=== PATIENT | female | born 1970 | race Caucasian/White ===

== ENCOUNTER → 2018-04-03 | Outpatient (CLI) | payer OTHER ==
--- NOTE | 2018-04-04 14:27 | MM ---
Reason for exam: screening (asymptomatic). Last mammogram was performed 2 years and 8 months ago. History: Family history of breast cancer in aunt at age 40. Reductions of both breasts. Took hormonal contraceptives for 11 years beginning at age 16. Physical Findings: A clinical breast exam by your physician is recommended on an annual basis and results should be correlated with mammographic findings. MG 3D Screening Mammo W/Cad Bilateral CC and MLO view(s) were taken. Prior study comparison: August 12, 2015, bilateral MG 3d diag mammo w/cad [facility]. December 29, 2014, right breast MG diagnostic mammo RT w CAD. The breast tissue is heterogeneously dense. This may lower the sensitivity of mammography. No suspicious abnormality. No significant changes when compared with prior studies. ASSESSMENT: Negative, BI-RAD 1 RECOMMENDATION: Routine screening mammogram of both breasts in 1 year.
== END | disposition home or self-care (01) ==
LOC: RADMAMWWP 07:14
PROVIDERS: ATTEND Family Medicine
DX: Z12.31 Encounter for screening mammogram for malignant neoplasm of breast (principal)
CPT/HCPCS: 77063; 77067

== ENCOUNTER → 2018-04-19 | Outpatient (CLI) | payer OTHER ==
--- NOTE | 2018-04-19 12:20 | ECHOS ---
STRESS ECHOCARDIOGRAM DATE OF SERVICE: 04/19/2018 INDICATIONS: Chest pain. MEDICATIONS: BASELINE HEART RATE: 72 BASELINE BLOOD PRESSURE: 120/74 MAXIMUM HEART RATE: 158 MAXIMUM BLOOD PRESSURE: 179/91 85% MPHR: 145 100% MPHR: 171 METS: 11.1 MAXIMUM STAGE REACHED: III TOTAL EXERCISE TIME: 9-1/2 minutes CLINICAL INFORMATION: Baseline EKG revealed a normal sinus rhythm with poor R-wave progression over precordial leads. The patient walked for 9-1/2 minutes on standard Manuel protocol, achieved a maximal heart rate of 158 beats per minute which is more than 85% of predicted maximal. She developed fatigue and shortness of breath but did not have any angina or arrhythmia. EKG did not reveal any ST-segment changes to indicate ischemia. This is a negative stress test with good exercise capacity. Baseline echo images revealed normal wall motion and wall thickening of all segments. At peak exercise, there was good augmentation of left ventricular wall motion and wall thickening of all segments suggesting that there is no evidence of stress-induced ischemia on this study. FINAL IMPRESSION: 1. Good exercise capacity with a negative stress test by EKG criteria. 2. Normal stress echocardiogram without evidence of ischemia. MMODL / IJN: [id number] /
== END | disposition home or self-care (01) ==
LOC: RADNMMAIN 09:14
PROVIDERS: ATTEND Family Medicine
DX: R07.89 Other chest pain (principal)
CPT/HCPCS: 93351

== ENCOUNTER → 2019-03-03 | Outpatient (CLI) | payer OTHER | END | disposition home or self-care (01) | LOC: BARWHC3 13:05 | PROVIDERS: ATTEND Surgery | DX: Z53.9 Procedure and treatment not carried out, unspecified reason (principal) ==

== ENCOUNTER → 2020-05-10 | Outpatient (CLI) | payer OTHER ==
--- NOTE | 2020-05-10 13:38 | MR ---
EXAMINATION TYPE: MR brain wo/w con DATE OF EXAM: 05/10/2020 1:32 PM COMPARISON: NONE HISTORY: Headaches, hx brain tumor resection 1988 FINDINGS: The ventricles, basal cisterns and sulci overlying the cerebral convexities are mildly enlarged. There is evidence of mild periventricular white matter ischemic demyelination. Remote deep white matter insults are also noted. No acute edema is seen on diffusion weighted imaging. There is no evidence for midline shift or mass effect. Acute intracranial hemorrhage or extra-axial collection is not evident. The paranasal sinuses and mastoid air cells are well-aerated. IMPRESSION: Age-related atrophic and chronic small vessel ischemic change. No acute intracranial process at this time.
--- NOTE | 2020-05-10 13:58 | MR ---
EXAMINATION TYPE: MR angio head wo con DATE OF EXAM: 05/10/2020 COMPARISON: None HISTORY: Headaches, hx brain tumor resection 1988 CONTRAST: None TECHNIQUE: Multiplanar multiecho imaging on a 3.0 Jesusita magnet is performed through the [facility] of [facility]. 3-D [id number]-sk-[id number] imaging is performed. Source images are reviewed on the computer in the axi al plane. Reconstructed images rotating on the computer are reviewed. FINDINGS: The internal carotid arteries bifurcate normally into A1 and M1 segments. The A2 segments are normal. Middle cerebral artery branches are normal. Anterior communicating artery is patent. The right posterior communicating artery is patent. The left posterior communicating artery is patent. There is a 0.3 cm aneurysm extending from the inferior lateral left carotid siphon. Series 701 image 54. This is poorly visualized on Three-D reconstructed images. Vertebrobasilar arteries within the [id number] are normal. Posterior cerebral vasculature is norm al. No obstructions are identified. No significant flow-limiting stenosis is evident. IMPRESSIONS: 1. 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
== END ==
LOC: RADMRIMAIN 12:33
PROVIDERS: ATTEND Nurse Practitioner Adult Health
DX: I67.82 Cerebral ischemia (principal); G31.1 Senile degeneration of brain, not elsewhere classified; I72.0 Aneurysm of carotid artery; Z86.011 Personal history of benign neoplasm of the brain
CPT/HCPCS: 70544; 70553; A9585

== ENCOUNTER → 2020-05-10 | Outpatient (CLI) | payer OTHER ==
--- NOTE | 2020-05-10 08:40 | US ---
EXAMINATION TYPE: US duplex aorta DATE OF EXAM: 05/10/2020 COMPARISON: NONE CLINICAL HISTORY: Z82.49 Family hx of AAA. EXAM MEASUREMENTS: Abdominal Aorta: Proximal: 2.4 x 2.4 cm Mid: 2.2 x 2.1 cm Distal: 1.6 x 1.4 cm Bifurcation: 1.2 cm 1.1 cm No evidence of AAA IMPRESSION: 1. Dominant aorta ultrasound negative for aneurysm.
== END | disposition home or self-care (01) ==
LOC: RADUSWWP 07:53
PROVIDERS: ATTEND Family Medicine
DX: Z13.6 Encounter for screening for cardiovascular disorders (principal); Z82.49 Family history of ischemic heart disease and other diseases of the circulatory system
CPT/HCPCS: 93979

== ENCOUNTER 2020-05-22 13:06 | Observation (INO) | payer OTHER ==
[2020-05-22] MEDS ORDERED: DIPH,PERTUS(ACELL)TETVAC-LF 0.5 ML VIAL IM ONE (13:16)
[2020-05-22] MEDS ORDERED: HYDROmorphone 0.5 MG/0.5 ML SYRINGE IVP STA (13:16)
[2020-05-22 13:47] LABS: Basophils % (A) 0 %; Eosinophils # (A) 0.1 k/uL (0-0.7); Eosinophils % (A) 1 %; HCT 42.4 % (34.0-46.0); HGB 13.6 gm/dL (11.4-16.0); Lymphocytes # (A) 2.1 k/uL (1.0-4.8); Lymphocytes % (A) 16 %; MCH 29.8 pg (25.0-35.0); MCV 93.2 fL (80.0-100.0); Mean Platelet Volume 8.1; Monocytes # (A) 0.4 k/uL (0-1.0); Monocytes % (A) 3 %; Neutrophils # (A) 10.4 k/uL (1.3-7.7); Neutrophils % (A) 79 %; Platelet Count 237 k/uL (150-450); RBC 4.55 m/uL (3.80-5.40); RDW 13.3 % (11.5-15.5); WBC 13.1 k/uL (3.8-10.6)
[2020-05-22] MEDS ORDERED: HYDROmorphone 1 MG/ML 1 ML SYRINGE IVP STA (13:49)
[2020-05-22 13:52] LABS: ALT 22 U/L (4-34); AST 27 U/L (14-36); African American GFR (CKD) >90 (>60 ml/min/1.73 sqM); Albumin 4.1 g/dL (3.5-5.0); Alkaline Phosphatase 65 U/L (38-126); Anion Gap 8 mmol/L; Blood Urea Nitrogen 17 mg/dL (7-17); Calcium 9.2 mg/dL (8.4-10.2); Carbon Dioxide 25 mmol/L (22-30); Chloride 104 mmol/L (98-107); Glucose 130 mg/dL (74-99); Non-African American GFR(CKD) >90 (>60 ml/min/1.73 sqM); Potassium 3.9 mmol/L (3.5-5.1); Sodium 137 mmol/L (137-145); Total Bilirubin 0.6 mg/dL (0.2-1.3); Total Protein 6.7 g/dL (6.3-8.2)
--- NOTE | 2020-05-22 13:52 | XR ---
EXAMINATION TYPE: XR knee complete RT DATE OF EXAM: 05/22/2020 COMPARISON: NONE HISTORY: Pain TECHNIQUE: Three views are submitted. FINDINGS: Joint spaces are preserved. Osseous structures are intact. No acute fracture seen. Soft tissue lizandro ma and laceration with extensive amount radiopaque foreign body suspected. IMPRESSION: 1. No acute fracture or dislocation. 2. Soft tissue edema and emphysema with suspected laceration and radiopaque foreign body
--- NOTE | 2020-05-22 13:53 | XR ---
EXAMINATION TYPE: XR Hip Complete RT DATE OF EXAM: 05/22/2020 COMPARISON: NONE HISTORY: Pain TECHNIQUE: 2 views submitted FINDINGS: There is no evidence of erosive change or acute fracture. Concentric narrowing of the joint space. . IMPRESSION: 1. No evidence of acute fracture or dislocation.
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
[2020-05-22] MEDS ORDERED: ONDANSETRON 4 MG/2 ML VIAL IVP PRN ×2 (14:11→15:08)
[2020-05-22] MEDS ORDERED: NALOXONE 0.4 MG/ML 1 ML VIAL IV PRN (14:11)
[2020-05-22] MEDS ORDERED: HYDROmorphone 0.5 MG/0.5 ML SYRINGE IVP PRN ×3 (14:11→15:08)
[2020-05-22] MEDS ORDERED: SODIUM CHLORIDE 0.9% 1,000 ML IV SCH (14:15)
[2020-05-22] MEDS ORDERED: LORazepam 2 MG/ML INJ IV STA (14:27)
[2020-05-22] MEDS ORDERED: HYDROcodone/APAP 5-325MG 1 EACH TAB PO PRN ×2 (15:08)
[2020-05-22] MEDS ORDERED: SENNOSIDES-DOCUSATE SODIUM 1 EACH TAB PO PRN (15:08)
[2020-05-22] MEDS ORDERED: hydrOXYzine pamoate 25 MG CAP PO PRN (15:08)
[2020-05-22] MEDS ORDERED: HYDROmorphone 1 MG/ML 1 ML SYRINGE IVP PRN (15:08)
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
[2020-05-22 15:36] VITALS: RESP 18
[2020-05-22] MEDS ORDERED: SODIUM CHLORIDE 0.9% 100 ML BAG ONE (16:11)
[2020-05-22] MEDS ORDERED: LABETALOL 5 MG/ML VIAL MDV ONE (16:11)
[2020-05-22] MEDS ORDERED: MIDAZOLAM 2 MG/2 ML VIAL ONE (16:11)
[2020-05-22] MEDS ORDERED: KETOROLAC 30 MG/ML 1 ML VIAL ONE (16:11)
[2020-05-22] MEDS ORDERED: PROPOFOL 10 MG/ML 20 ML VIAL IV ONE (16:11)
[2020-05-22] MEDS ORDERED: LIDOCAINE 1% INJ 10MG/ML (20 ML MDV) ONE (16:11)
[2020-05-22] MEDS ORDERED: SUCCINYLCHOLINE CHLORIDE 100 MG/5 ML SYR IV ONE (16:11)
[2020-05-22] MEDS ORDERED: ceFAZolin 1,000 MG VIAL ONE (16:11)
[2020-05-22] MEDS ORDERED: IV FLUID CONTINUATION 1,000 ML IV ONE (16:11)
[2020-05-22] MEDS ORDERED: DEXAMETHASONE SOD PHOSPHATE 4 MG/ML 1 ML VIAL ONE (16:11)
[2020-05-22] MEDS ORDERED: ONDANSETRON 4 MG/2 ML VIAL ONE (16:11)
[2020-05-22] MEDS ORDERED: fentaNYL (PF) 50 MCG/ML 2 ML AMP ONE (16:11)
[2020-05-22] MEDS ORDERED: LACTATED RINGERS 1,000 ML IV ONE (16:31)
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
[2020-05-22] MEDS ORDERED: BUPIVACAINE (PF) 0.25% 30 ML VIAL SQ ONE ×2 (16:37)
[2020-05-22] MEDS ORDERED: ceFAZolin 3,000 MG in SODIUM CHLORIDE 0.9% IRRIGATIO 3,000 ML IRRIGATION ONE (16:38)
--- NOTE | 2020-05-22 16:53 | P.DS ---
Providers Date of admission: 05/22/20 13:50 Expected date of discharge: 05/22/20 Attending physician: Kevin Savage Primary care physician: Alexander Ballesteros - Discharge Diagnosis(es) (1) Knee laceration Current Visit: Yes Status: Acute (2) Laceration with foreign body Current Visit: Yes Status: Acute (3) Right knee injury Current Visit: Yes Status: Acute Hospital Course: This is a 49-year-old female who is admitted for right knee laceration. Patient underwent irrigation and debridement of the right knee on 05/22/2020 in the operating room by Dr Kevin Savage. The procedure was performed without complication or sequelae. Patient is doing well postoperatively. On day of discharge vital signs are stable. Patient is in no acute distress and is alert and oriented 3. Calf is soft and nontender to palpation. Dressing is clean, dry, and intact. Patient has full foot and ankle motion without pain or difficulty. Neurovascular status and circulatory status are intact. Patient is in good condition for discharge home. Patient Condition at Discharge: Stable Plan - Discharge Summary New Discharge Prescriptions: New HYDROcodone/APAP 5-325MG [Clemons 5-325] 1 - 2 tab PO Q6HR PRN #30 tab PRN Reason: Pain Sennosides [Senokot] 2 tab PO DAILY PRN #60 tablet PRN Reason: Constipation Cephalexin [Keflex] 500 mg PO Q6HR 10 Days #40 cap No Action predniSONE See Taper PO DIRECTED Rosuvastatin [Crestor] 20 mg PO DAILY Glucos Sul 2Kcl/MSM/Chond/C/Mn [Glucosamine Chondroitin Cap] 1 each PO DAILY Discharge Medication List Cephalexin [Keflex] 500 mg PO Q6HR 10 Days #40 cap 05/22/20 [Rx] Glucos Sul 2Kcl/MSM/Chond/C/Mn [Glucosamine Chondroitin Cap] 1 each PO DAILY 05/22/20 [History] HYDROcodone/APAP 5-325MG [Clemons 5-325] 1 - 2 tab PO Q6HR PRN #30 tab 05/22/20 [Rx] Rosuvastatin [Crestor] 20 mg PO DAILY 05/22/20 [History] Sennosides [Senokot] 2 tab PO DAILY PRN #60 tablet 05/22/20 [Rx] predniSONE See Taper PO DIRECTED 05/22/20 [History] Follow up Appointment(s)/Referral(s): Alexander Ballesteros MD [Primary Care Provider] - 1-2 days Kevin Savage DO [Doctor of Osteopathic Medicine] - 1 Week Activity/Diet/Wound Care/Special Instructions: Keep dressing clean, dry and intact. Leave surgical dressing in place for 24 hours. May loosen CAROLYN wrap if too tight. Elevate and ice for swelling. Maintain knee immobilizer for comfort. Weight bearing as tolerated. [place] to be removed in 10-14 days. May shower in 24-48 hours if no drainage from the incision. Do not soak incision. Please take medications as prescribed. Please follow-up with [facility] and call if any questions or concerns, . Discharge Disposition: HOME SELF-CARE
[2020-05-22 17:07] VITALS: TEMP 97.1
[2020-05-22] MEDS ORDERED: fentaNYL (PF) 50 MCG/ML 2 ML AMP IV ONE (17:08)
[2020-05-22 17:32] VITALS: BP 145/82; PULSE 59
[2020-05-22 18:16] LABS: Basophils % (A) 0 %; Eosinophils % (A) 0 %; HCT 40.3 % (34.0-46.0); HGB 12.6 gm/dL (11.4-16.0); Lymphocytes # (A) 0.7 k/uL (1.0-4.8); Lymphocytes % (A) 5 %; MCH 29.7 pg (25.0-35.0); MCHC 31.1 g/dL (31.0-37.0); MCV 95.4 fL (80.0-100.0); Monocytes # (A) 0.5 k/uL (0-1.0); Monocytes % (A) 4 %; Neutrophils # (A) 12.9 k/uL (1.3-7.7); Neutrophils % (A) 91 %; Platelet Count 196 k/uL (150-450); RBC 4.22 m/uL (3.80-5.40); RDW 13.4 % (11.5-15.5); WBC 14.2 k/uL (3.8-10.6)
== END 2020-05-22 19:01 | disposition home or self-care (01) ==
LOC: EC 13:06 → 1SOBS 13:50
PROVIDERS: ADMIT Orthopaedic Surgery; ATTEND Orthopaedic Surgery
DX: S81.021A Laceration with foreign body, right knee, initial encounter (principal); V18.4XXA Pedal cycle driver injured in noncollision transport accident in traffic accident, initial encounter; Y93.55 Activity, bike riding; Z79.899 Other long term (current) drug therapy; Z86.011 Personal history of benign neoplasm of the brain; I72.0 Aneurysm of carotid artery; Z98.890 Other specified postprocedural states; F41.9 Anxiety disorder, unspecified
CPT/HCPCS: 90471; 99285; 36415; 80053; 85025; 73502; 73562; 90715; 12035; G0378; J2250; J2060; J1100; J0690 ×2; J2405; J2001; J3010; J1885; J1170 ×2; J0330; J2704

== ENCOUNTER → 2020-09-08 | Outpatient (CLI) | payer OTHER ==
--- NOTE | 2020-09-13 08:30 | MM ---
Reason for exam: screening (asymptomatic). Last mammogram was performed 2 years and 5 months ago. History: Patient is postmenopausal. Family history of breast cancer in aunt at age 40. Reductions of both breasts. Took hormonal contraceptives for 11 years beginning at age 16. Physical Findings: A clinical breast exam by your physician is recommended on an annual basis and results should be correlated with mammographic findings. MG 3D Screening Mammo W/Cad Bilateral CC and MLO view(s) were taken. Prior study comparison: April 03, 2018, bilateral MG 3d screening mammo w/cad. August 12, 2015, bilateral MG 3d diag mammo w/cad [facility]. There are scattered fibroglandular densities. No significant changes when compared with prior studies. ASSESSMENT: Benign, BI-RAD 2 RECOMMENDATION: Routine screening mammogram of both breasts in 1 year.
== END | disposition home or self-care (01) ==
LOC: RADMAMWWP 15:03
PROVIDERS: ATTEND Family Medicine
DX: Z12.31 Encounter for screening mammogram for malignant neoplasm of breast (principal)
CPT/HCPCS: 77063; 77067

== ENCOUNTER → 2021-06-10 | Outpatient (CLI) | payer OTHER ==
--- NOTE | 2021-06-10 14:48 | MR ---
EXAMINATION TYPE: MR angio head wo/neck wo/w con DATE OF EXAM: 06/10/2021 COMPARISON: MR angiogram of the head 05/10/2020 HISTORY: Headaches, hx of past brain tumor TECHNIQUE: Time of flight images focusing on the [place] were performed without contrast.. 2-D and 3-D postprocessing imaging is performed. Multiplanar multisequence and postcontrast images ob tained through the neck, three-dimensional postprocessing was performed. FINDINGS: [place] MRA shows a stable appearance, the internal carotid artery aneurysm on the left measures approximately 2 to 3 mm by 4 mm. There is no other significant interval change. Neck MRI: The right common carotid, internal and external carotid arteries, vertebral arteries are pa tent. There is no stenosis by NASCET criteria. Left and right subclavian arteries, innominate artery are patent. * IMPRESSION: Similar measurement of the internal carotid artery aneurysm on the left. Unremarkable neck MRA.
== END | disposition home or self-care (01) ==
LOC: RADMRIMAIN 11:17
PROVIDERS: ATTEND Family Medicine
DX: I67.1 Cerebral aneurysm, nonruptured (principal); Z86.011 Personal history of benign neoplasm of the brain
CPT/HCPCS: 70544; 70549; A9585

== ENCOUNTER → 2021-08-31 | Outpatient (CLI) | payer OTHER ==
[~2021-08-31] MED LIST: BAMLANIVIMAB (EUA) 700 MG, ETESEVIMAB (EUA) 1,400 MG in SODIUM CHLORIDE 0.9% 50 ML IVPB NR; SODIUM CHLORIDE 0.9% 50 ML IVPB ONE; SODIUM CHLORIDE 0.9% 500 ML 500 ML in EMPTY BAG 1 BAG IV PRN
[2021-08-31 12:04] VITALS: RESP 16
[2021-08-31 12:23] VITALS: BP 128/85; PULSE 73; TEMP 98.5
== END ==
LOC: PROCWHC3 10:22
PROVIDERS: ATTEND Family Medicine
DX: U07.1 COVID-19 (principal); E66.9 Obesity, unspecified; Z68.30 Body mass index [BMI] 30.0-30.9, adult
CPT/HCPCS: 96360; J3490; M0245

== ENCOUNTER → 2021-09-20 | Outpatient (CLI) | payer OTHER ==
--- NOTE | 2021-09-21 14:43 | MM ---
Reason for exam: screening (asymptomatic). Last mammogram was performed 1 year ago. History: Patient is postmenopausal. Family history of breast cancer in aunt at age 40. Reductions of both breasts. Took hormonal contraceptives for 11 years beginning at age 16. Physical Findings: A clinical breast exam by your physician is recommended on an annual basis and results should be correlated with mammographic findings. MG 3D Screening Mammo W/Cad Bilateral CC and MLO view(s) were taken. Prior study comparison: September 08, 2020, bilateral MG 3d screening mammo w/cad. April 03, 2018, bilateral MG 3d screening mammo w/cad. There are scattered fibroglandular densities. No significant changes when compared with prior studies. ASSESSMENT: Benign, BI-RAD 2 RECOMMENDATION: Routine screening mammogram of both breasts in 1 year.
== END | disposition home or self-care (01) ==
LOC: RADMAMWWP 07:11
PROVIDERS: ATTEND Family Medicine
DX: Z12.31 Encounter for screening mammogram for malignant neoplasm of breast (principal); Z78.0 Asymptomatic menopausal state; Z80.3 Family history of malignant neoplasm of breast
CPT/HCPCS: 77063; 77067

== ENCOUNTER 2022-07-24 19:03 | Inpatient (IN) | payer OTHER ==
[2022-07-24 19:42] LABS: Basophils % (A) 1 %; Eosinophils # (A) 0.1 k/uL (0-0.7); Eosinophils % (A) 2 %; HCT 40.5 % (34.0-46.0); HGB 13.7 gm/dL (11.4-16.0); Lymphocytes # (A) 2.4 k/uL (1.0-4.8); Lymphocytes % (A) 32 %; MCH 30.6 pg (25.0-35.0); MCHC 33.8 g/dL (31.0-37.0); MCV 90.7 fL (80.0-100.0); Monocytes # (A) 0.4 k/uL (0-1.0); Monocytes % (A) 5 %; Neutrophils # (A) 4.4 k/uL (1.3-7.7); Neutrophils % (A) 59 %; Platelet Count 200 k/uL (150-450); RBC 4.47 m/uL (3.80-5.40); RDW 13.2 % (11.5-15.5); WBC 7.4 k/uL (3.8-10.6)
[2022-07-24 19:51] LABS: ALT 17 U/L (4-34); AST 22 U/L (14-36); African American GFR (CKD) >90 (>60 ml/min/1.73 sqM); Albumin 4.3 g/dL (3.5-5.0); Alkaline Phosphatase 59 U/L (38-126); Anion Gap 10 mmol/L; Blood Urea Nitrogen 6 mg/dL (7-17); Calcium 9.3 mg/dL (8.4-10.2); Carbon Dioxide 26 mmol/L (22-30); Chloride 99 mmol/L (98-107); Glucose 87 mg/dL (74-99); Magnesium 1.9 mg/dL (1.6-2.3); Non-African American GFR(CKD) >90 (>60 ml/min/1.73 sqM); Potassium 3.7 mmol/L (3.5-5.1); Sodium 135 mmol/L (137-145); Total Bilirubin 0.7 mg/dL (0.2-1.3); Total Protein 6.6 g/dL (6.3-8.2)
[2022-07-24 19:52] LABS: Partial Thromboplastin Time 25.2 sec (22.0-30.0); Prothrombin Time 10.8 sec (9.0-12.0)
--- NOTE | 2022-07-24 19:57 | XR ---
EXAMINATION TYPE: XR chest 2V DATE OF EXAM: 07/24/2022 COMPARISON: NONE HISTORY: Substernal chest pain TECHNIQUE: 2 views FINDINGS: Heart is normal. Lungs are clear of infiltrate. No heart failure. There are no hilar masses . The bony thorax is intact. IMPRESSION: Normal chest
[2022-07-24] MEDS ORDERED: SODIUM CHLORIDE 0.9% 1,000 ML IV STA (21:19)
[2022-07-24] MEDS: NITROGLYCERIN SL TABS 0.4 MG TAB SUBLINGUAL PRN ×3 (21:38→23:55)
[2022-07-24] MEDS ORDERED: ONDANSETRON 4 MG/2 ML VIAL IVP STA (21:44)
--- NOTE | 2022-07-24 21:53 | ED ---
General Adult HPI - General Chief complaint: Chest Pain Stated complaint: Chest pain Time Seen by Provider: 07/24/22 21:04 Source: patient, RN notes reviewed, old records reviewed Mode of arrival: ambulatory - History of Present Illness Initial comments: Patient is a 52-year-old female who presents emergency department today after being sent over from her primary care over concern for chest pain. Chest pain started approximately 5:30 PM this evening. Was substernal in nature. Squeezing sensation. Patient does have a meeting. No other associated symptoms. Believes it may be radiating to her back intermittently. Patient does have family members with significant cardiac history as well as aneurysm. 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 Patient otherwise denies shortness of breath. Denies abdominal pain, nausea, vomiting. Denies any diaphoretic episodes with this chest pain. Is still having it. Had a prolonged wait in the waiting room where workup was started. She was brought back when laboratory studies are returning. I evaluated the patient in approximately 9 PM. Symptoms are unchanged. She already received 324 mi lligrams of aspirin prior to arrival. - Related Data Home Medications Medication Instructions Recorded Confirmed Glucos Sul 2Kcl/MSM/Chond/C/Mn 1 each PO DAILY 05/22/20 05/22/20 [Glucosamine Chondroitin Cap] Rosuvastatin [Crestor] 20 mg PO DAILY 05/22/20 05/22/20 predniSONE See Taper PO DIRECTED 05/22/20 05/22/20 Previous Rx's Medication Instructions Recorded Cephalexin [Keflex] 500 mg PO Q6HR 10 Days #40 cap 05/22/20 HYDROcodone/APAP 5-325MG [[place] 1 - 2 tab PO Q6HR PRN #30 tab 05/22/20 5-325] Sennosides [Senokot] 2 tab PO DAILY PRN #60 tablet 05/22/20 Allergies Allergy/AdvReac Type Severity Reaction Status Date / Time No Known Allergies Allergy Verified 07/24/22 19:07 Review of Systems ROS Statement: Those systems with pertinent positive or pertinent negative responses have been documented in the HPI. Review of Systems: CONST: Denies fever EYES: Denies blurry vision ENT: Denies nasal congestion C/V: Endorse's chest pain RESP: Denies shortness of breath GI: Denies abdominal pain : Denies dysuria SKIN: Denies rash. MSK: Denies joint pain. NEURO: Denies headache ROS Other: All systems not noted in ROS Statement are negative. 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 History of Any Multi-Drug Resistant Organisms: None Reported Past Surgical History: Section Additional Past Surgical History / Comment(s): c section x 2 brain surgery to remove tumor Past Anesthesia/Blood Transfusion Reactions: No Reported Reaction Past Psychological History: Anxiety Smoking Status: Never smoker General Exam - General Exam Comments Initial Comments: General: Appears in no acute distress. HEAD: Normal with no signs of head trauma. EYES: PERRLA, EOMI, conjunctiva normal, no discharge. ENT: Hearing grossly intact, normal oropharynx. RESPIRATORY: Clear breath sounds bilaterally. No wheezes, rales, or rhonchi. C/V: Regular rate and rhythm. S1 and S2 auscultated, no edema, peripheral pulses 2+ and intact throughout. her chest pain nonreproducible on palpation. ABD: Abd is soft, nontender, nondistended EXT: Normal range of motion, no obvious deformity SKIN: No rashes or lesions observed on exposed skin. NEURO: Alert and oriented x 4. Cranial nerves II-XII intact. No focal sensory or strength deficits. Course Vital Signs 07/24/22 19:03 Temperature 98.2 F Pulse Rate 69 Respiratory 18 Rate Blood Pressure 169/112 O2 Sat by Pulse 100 Oximetry Medical Decision Making - Medical Decision Making Based on the patient's presentation and physical exam, I'm concerned for acute cardio pulmonary process for current symptoms. She had a prolonged wait in the waiting room. Workup was initiated there by triage staff nursing. This included cardiac labs. They returned remarkable for an elevated troponin of 0.588. Remainder labs are unremarkable. Chest x-ray showed no acute cardio pulmonary process. Initial EKG showed no acute ischemic process. At this time, I evaluated the patient and she is brought back to the room after the troponin returned. She still having active chest pain. She received aspirin. Will start an IV, and trial her on nitroglycerin tablets for improvement in the pain. She states she is still somewhat having some pain radiate towards her back. She is uncertain this is related to anxiety as she does have a family history of aneurysms. Due to her symptoms, we will obtain a CT angiogram to rule out aortic injury at this time. She was in agreement this plan. Vital signs are within acceptable limits. She is slightly hypertensive. Repeat EKG showed no acute ischemic process. No change from prior EKG. EKGs both appear somewhat to a prior stress tests EKG in our system from 2018. In itial electrical stim tablet decreased her pain from a 7 to a 3. She does have an episode of emesis following the initial tablet which resolved with Zofran. Second tablet did improve her pain from a [address] angiogram was obtained, and revealed a 4 cm aneurysm of the ascending aorta. No dissection. No other findings. I updated the patient. Due to her elevated troponin, chest pain, I'm concerned she is having and a NSTEMI. Patient will be started on a heparin drip, as her chest pain responded to nitro she a half-inch of Nitropaste will be applied. She already received a 324mg aspirin at the outpatient facility. She is resting comfortably at this time. She understands her computed tomography scan findings of the ascending aneurysm. She also understands to rest the workup and plan. She was in agreement with the plan. Vital signs are within acceptable limits at this time. Echo was ordered. Cardiology is consulted. Heparin was initiated. I spoke with the admitting physician, Dr. Cohen who was in agreement with this plan. Patient was admitted in stable condition. - Lab Data Result diagrams: 07/24/22 19:38 07/24/22 19:38 Lab Results 07/24/22 07/24/22 07/24/22 Range/Units 19:38 19:38 19:38 WBC 7.4 (3.8-10.6) k/uL RBC 4.47 (3.80-5.40) m/uL Hgb 13.7 (11.4-16.0) gm/dL Hct 40.5 (34.0-46.0) % MCV 90.7 (80.0-100.0) fL MCH 30.6 (25.0-35.0) pg MCHC 33.8 (31.0-37.0) g/dL RDW 13.2 (11.5-15.5) % Plt Count 200 (150-450) k/uL MPV 9.0 Neutrophils % 59 % Lymphocytes % 32 % Monocytes % 5 % Eosinophils % 2 % Basophils % 1 % Neutrophils # 4.4 (1.3-7.7) k/uL Lymphocytes # 2.4 (1.0-4.8) k/uL Monocytes # 0.4 (0-1.0) k/uL Eosinophils # 0.1 (0-0.7) k/uL Basophils # 0.0 (0-0.2) k/uL PT 10.8 (9.0-12.0) sec INR 1.0 (<1.2) APTT 25.2 (22.0-30.0) sec Sodium 135 L (137-145) mmol/L Potassium 3.7 (3.5-5.1) mmol/L Chloride 99 (98-107) mmol/L Carbon Dioxide 26 (22-30) mmol/L Anion Gap 10 mmol/L BUN 6 L (7-17) mg/dL Creatinine 0.63 (0.52-1.04) mg/dL Est GFR (CKD-EPI)AfAm >90 (>60 ml/min/1.73 sqM) Est GFR (CKD-EPI)NonAf >90 (>60 ml/min/1.73 sqM) Glucose 87 (74-99) mg/dL Calcium 9.3 (8.4-10.2) mg/dL Magnesium 1.9 (1.6-2.3) mg/dL Total Bilirubin 0.7 (0.2-1.3) mg/dL AST 22 (14-36) U/L ALT 17 (4-34) U/L Alkaline Phosphatase 59 (38-126) U/L Troponin I (0.000-0.034) ng/mL Total Protein 6.6 (6.3-8.2) g/dL Albumin 4.3 (3.5-5.0) g/dL 07/24/22 Range/Units 19:38 WBC (3.8-10.6) k/uL RBC (3.80-5.40) m/uL Hgb (11.4-16.0) gm/dL Hct (34.0-46.0) % MCV (80.0-100.0) fL MCH (25.0-35.0) pg MCHC (31.0-37.0) g/dL RDW (11.5-15.5) % Plt Count (150-450) k/uL MPV Neutrophils % % Lymphocytes % % Monocytes % % Eosinophils % % Basophils % % Neutrophils # (1.3-7.7) k/uL Lymphocytes # (1.0-4.8) k/uL Monocytes # (0-1.0) k/uL Eosinophils # (0-0.7) k/uL Basophils # (0-0.2) k/uL PT (9.0-12.0) sec INR (<1.2) APTT (22.0-30.0) sec Sodium (137-145) mmol/L Potassium (3.5-5.1) mmol/L Chloride (98-107) mmol/L Carbon Dioxide (22-30) mmol/L Anion Gap mmol/L BUN (7-17) mg/dL Creatinine (0.52-1.04) mg/dL Est GFR (CKD-EPI)AfAm (>60 ml/min/1.73 sqM) Est GFR (CKD-EPI)NonAf (>60 ml/min/1.73 sqM) Glucose (74-99) mg/dL Calcium (8.4-10.2) mg/dL Magnesium (1.6-2.3) mg/dL Total Bilirubin (0.2-1.3) mg/dL AST (14-36) U/L ALT (4-34) U/L Alkaline Phosphatase (38-126) U/L Troponin I 0.588 H* (0.000-0.034) ng/mL Total Protein (6.3-8.2) g/dL Albumin (3.5-5.0) g/dL - EKG Data -: EKG Interpreted by Me EKG Comments: 12-lead Electrocardiogram Interpretation Note EKG was reviewed and interpreted by myself. 12-lead ECG performed at 1930 is interpreted by me as revealing normal sinus rhythm at a rate of 72 beats per minute. [place] is normal. CT interval is 125 ms, QRS duration is 94 ms, QTc is 426 seconds.. There were T-wave inversions in leads aVL and V2. These are seen on prior stress EKG from 2018. No acute ST segment or T-wave abnormalities to suggest ischemic process.. R wave progression across the precordium was satisfactory. By my interpretation this EKG is non-diagnostic for acute ischemia. 12-lead Electrocardiogram Interpretation Note EKG was reviewed and interpreted by myself. 12-lead ECG performed at 2119 is interpreted by me as revealing normal sinus rhythm at a rate of 75 beats per minute. [place] is normal. CT intervals 113 ms, QRS duration is 81 ms, QTc is 431 ms.. Redemonstrated T-wave inversions in aVL and V2. There were no acute ST or T wave abnormalities to suggest myocardial ischemia or injury. R wave progression across the precordium was satisfactory. By my interpretation this EKG is non-diagnostic for acute ischemia. No change from EKG from earlier. Critical Care Time Critical Care Time: Yes Total Critical Care Time: 35 Critical Care Time: Upon my evaluation, this patient had a high probability of imminent or life- threatening deterioration due to nstemi, chest pain, elevated troponin, which required my direct attention, intervention, and personal management. I have personally provided 35 minutes of critical care time exclusive of time spent on separately billable procedures. Time includes review of laboratory data, radiology results, discussion with consultants, and monitoring for potential decompensation. Interventions were performed as documented in my note. Disposition Clinical Impression: NSTEMI (non-ST elevated myocardial infarction), Chest pain Disposition: ADMITTED IP TO THIS [facility] Condition: Stable Time of Disposition: 23:30
[2022-07-24] MEDS ORDERED: diphenhydrAMINE 50 MG/ML 1 ML VIAL IVP STA (22:10)
[2022-07-24] MEDS ORDERED: PROCHLORPERAZINE INJ 10 MG/2 ML VIAL IVP STA (22:10)
--- NOTE | 2022-07-24 23:13 | CT ---
EXAMINATION TYPE: CT angio thor/abd pel aorta DATE OF EXAM: 07/24/2022 COMPARISON: None HISTORY: Extreme chest pain that radiates to back. Hx of aneurysms and family Hx of aneurysms. CT DLP: 592.5 mGycm Automated exposure control for dose reduction was used. CONTRAST: Performed with IV Contrast, patient injected with 100 mL of Isovue 370. Images obtained from the thoracic inlet to the floor the pelvis without and subsequently with the IV contrast. There are 3-D post processed images. The lungs are clear of consolidation. No pleural effus ion or pneumothorax. Heart size is normal. No mediastinal adenopathy. There is 4 cm aneurysm of the a scending aorta. No dissection. There are no hilar masses. No evidence of filling defect in the pulmon stephane arteries. Liver spleen and stomach pancreas and gallbladder appear intact. The bile ducts are not dilated. There is no adrenal mass. Kidneys show normal size and contour. There is normal enhancement of the ki dneys. No hydronephrosis. Ureters are not dilated. No retroperitoneal adenopathy. Bladder distends no rmally with contrast. No free fluid in the pelvis. No pelvic mass. There are sigmoid diverticula. No diverticulitis. Appendix appears normal. There is no mesenteric edema. No ascites or free air. No sign of a bowel obstruction. There is arterial flow in the celiac artery and superior mesenteric artery. There is arterial flow in the renal and iliac and femoral arteries. No evidence of aneurysm or dissection. No evidence of hardik rial stenosis. The thoracic and lumbar spine are intact. No compression fracture. The bony pelvis is intact. Sternum is intact. IMPRESSION: There is 4 cm aneurysm of the ascending aorta. No arterial dissection. Negative CT angiogram of the a bdomen and pelvis.
[2022-07-24] MEDS ORDERED: NITROGLYCERIN OINT 1 INCH/GM PACKET TOPICAL STA (23:28)
[2022-07-24] MEDS ORDERED: HEPARIN SODIUM 1,000 UN/ML (10ML VL) IV PRN (23:28)
[2022-07-24] MEDS ORDERED: HEPARIN SODIUM 1,000 UN/ML (10ML VL) IV ONE (23:28)
[2022-07-24] MEDS ORDERED: KETOROLAC 15 MG/ML 1 ML VIAL IVP STA (23:28)
[2022-07-24] MEDS ORDERED: ONDANSETRON 4 MG/2 ML VIAL IVP PRN (23:30)
[2022-07-24] MEDS ORDERED: NALOXONE 0.4 MG/ML 1 ML VIAL IV PRN (23:30)
[2022-07-24] MEDS: HEPARIN SOD,PORK IN 0.45% NACL 25,000 UNIT in 0.45% NACL 1 250ML.BAG IV SCH (23:56)
[2022-07-25 01:00] LABS: Basophils % (A) 0 %; Eosinophils # (A) 0.1 k/uL (0-0.7); Eosinophils % (A) 0 %; HCT 36.3 % (34.0-46.0); HGB 12.5 gm/dL (11.4-16.0); Lymphocytes # (A) 1.5 k/uL (1.0-4.8); Lymphocytes % (A) 13 %; MCH 31.9 pg (25.0-35.0); MCHC 34.4 g/dL (31.0-37.0); MCV 92.8 fL (80.0-100.0); Mean Platelet Volume 9.1; Monocytes # (A) 0.5 k/uL (0-1.0); Monocytes % (A) 4 %; Neutrophils # (A) 9.3 k/uL (1.3-7.7); Neutrophils % (A) 82 %; Platelet Count 167 k/uL (150-450); RBC 3.91 m/uL (3.80-5.40); WBC 11.4 k/uL (3.8-10.6)
[2022-07-25 01:16] LABS: INR 1.1 (<1.2); Prothrombin Time 11.9 sec (9.0-12.0)
--- NOTE | 2022-07-25 04:27 | P.HPIM ---
History of Present Illness H&P Date: 07/24/22 Chief Complaint: chest pain 52 year old female denies any significant past medical history patient coming in for sudden chest pain central crushing pain radiating to the back , denies any cardiac history , denies any associated profuse sweating, nausea vomiting or SOB. she was brought into the hospital for evaluation given aspirin and nitro to ease the pain , EKG showed T wave inversion in leads V1 and V2 along with q wave in V1 V2. patient denies any cardiac history , denies any trouble breathing, denies any URI symptoms , in the ED , CT angio ofthe chest showed 4 cm ascending aorta aneurysm. no dissection. patient was initiated on heparin drip in the ED, and admitted for cardiology eval she denies tobacco smoking , illicit drugs or alcohol she denies any premature family history of CAD Review of Systems Pertinent positives as noted in HPI. 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 History of Any Multi-Drug Resistant Organisms: None Reported Past Surgical History: Section Additional Past Surgical History / Comment(s): c section x 2 brain surgery to remove tumor Past Anesthesia/Blood Transfusion Reactions: No Reported Reaction Past Psychological History: Anxiety Smoking Status: Never smoker - Past Family History famly Additional Family Medical History / Comment(s): no CAD Medications and Allergies Home Medications Medication Instructions Recorded Confirmed Type Cephalexin [Keflex] 500 mg PO Q6HR 10 Days #40 cap 05/22/20 Rx Glucos Sul 2Kcl/MSM/Chond/C/Mn 1 each PO DAILY 05/22/20 05/22/20 History [Glucosamine Chondroitin Cap] HYDROcodone/APAP 5-325MG [[place] 1 - 2 tab PO Q6HR PRN #30 tab 05/22/20 Rx 5-325] Rosuvastatin [Crestor] 20 mg PO DAILY 05/22/20 05/22/20 History Sennosides [Senokot] 2 tab PO DAILY PRN #60 tablet 05/22/20 Rx predniSONE See Taper PO DIRECTED 05/22/20 05/22/20 History Allergies Allergy/AdvReac Type Severity Reaction Status Date / Time No Known Allergies Allergy Verified 07/24/22 19:07 Physical Exam Vitals: Vital Signs Temp Pulse Resp BP Pulse Ox 07/24/22 19:03 98.2 F 69 18 169/112 100 Intake and Output 07/24/22 07/24/22 07/25/22 14:59 22:59 06:59 Other: Weight 63.503 kg Constitutional: No acute distress, conversant, pleasant Eyes: Anicteric sclerae, moist conjunctiva, Pupils equal round reactive to light ENMT: NC/AT Oropharynx clear, no erythema, or exudates Neck: Supple, no masses, or JVD No carotid bruits No thyromegaly Lungs: Clear to auscultation Clear to percussion Normal respiratory effort, no accessory muscle use Cardiovascular: Heart regular in rate and rhythm, No murmurs, gallops, or rubs No peripheral edema Abdominal: Soft Nontender, no guarding, rebound or rigidity Abdomen moving with respiration Normoactive bowel sounds No hepatomegaly, No splenomegaly No palpable mass No abdominal wall hernia noted Skin: Normal temperature, tone, texture, turgor No induration No subcutaneous nodules No rash, lesions No ulcers Extremities: No digital cyanosis No clubbing Pedal pulses intact and symmetrical Radial pulses intact and symmetrical No calf tenderness Psychiatric: Alert and oriented to person, place and time Appropriate affect fair judgement Neuro Muscles Strength 5/5 in all 4 extremities Sensation to light touch grossly present throughout Cranial nerves II-XII grossly intact No focal sensory deficits Lymphatics: no palpable cervical or supraclavicular , or inguinal lymph nodes Results CBC & Chem 7: 07/25/22 00:24 07/24/22 19:38 Labs: Abnormal Lab Results - Last 24 Hours (Table) 07/24/22 07/24/22 Range/Units 19:38 19:38 Sodium 135 L (137-145) mmol/L BUN 6 L (7-17) mg/dL Troponin I 0.588 H* (0.000-0.034) ng/mL Assessment and Plan Assessment: NSTEMI EKG T wave inversion and Q wave in V1, V2 CXR no acute pathology trops elevated cardiac exercise physiologist monitor vital signs ASA, statin , nitro cardiology consult A1c, lipid panel , TSH pain control IVF hydration with normal saline heart rate in the 60s elevated blood pressure reading no history of Hypertension continue to monitor full code DVT PPX on heparin drip for ACS
[2022-07-25] MEDS ORDERED: ACETAMINOPHEN TAB 325 MG TAB PO PRN (04:28)
[2022-07-25 06:40] LABS: Basophils % (A) 1 %; Eosinophils # (A) 0.1 k/uL (0-0.7); Eosinophils % (A) 1 %; HCT 35.5 % (34.0-46.0); Lymphocytes # (A) 2.2 k/uL (1.0-4.8); Lymphocytes % (A) 36 %; MCH 31.7 pg (25.0-35.0); MCV 93.5 fL (80.0-100.0); Mean Platelet Volume 9.1; Monocytes # (A) 0.3 k/uL (0-1.0); Monocytes % (A) 5 %; Neutrophils # (A) 3.5 k/uL (1.3-7.7); Neutrophils % (A) 57 %; Platelet Count 169 k/uL (150-450); RBC 3.79 m/uL (3.80-5.40); WBC 6.2 k/uL (3.8-10.6)
[2022-07-25 08:02] LABS: African American GFR (CKD) >90 (>60 ml/min/1.73 sqM); Anion Gap 8 mmol/L; Blood Urea Nitrogen 6 mg/dL (7-17); Calcium 8.5 mg/dL (8.4-10.2); Carbon Dioxide 23 mmol/L (22-30); Chloride 106 mmol/L (98-107); Glucose 74 mg/dL (74-99); Non-African American GFR(CKD) >90 (>60 ml/min/1.73 sqM); Potassium 3.6 mmol/L (3.5-5.1); Sodium 137 mmol/L (137-145)
[2022-07-25] MEDS: SODIUM CHLORIDE 0.9% 1,000 ML IV SCH ×2 (08:28→19:04)
[2022-07-25] MEDS: PANTOPRAZOLE 40 MG TABLET PO SCH (08:28)
[2022-07-25] MEDS ORDERED: ALPRAZolam 0.25 MG TAB PO PRN (08:52)
[2022-07-25] MEDS ORDERED: ATORVASTATIN 80 MG TAB PO STA (08:52)
[2022-07-25] MEDS ORDERED: ALPRAZolam 0.5 MG TAB PO PRN (08:52)
[2022-07-25] MEDS ORDERED: ATORVASTATIN 40 MG TAB PO SCH (09:00)
[2022-07-25] MEDS ORDERED: ASPIRIN 325 MG TAB PO SCH (09:00)
[2022-07-25] MEDS ORDERED: VERAPAMIL 2.5 MG/ML 2 ML AMP ONE (10:16)
[2022-07-25] MEDS ORDERED: fentaNYL (PF) 50 MCG/ML 2 ML AMP ONE (10:36)
[2022-07-25] MEDS ORDERED: MIDAZOLAM 2 MG/2 ML VIAL IV ONE (10:51)
[2022-07-25] MEDS ORDERED: LIDOCAINE 1% INJ 10MG/ML (30 ML VIAL-PF) SQ ONE (10:51)
[2022-07-25] MEDS ORDERED: IV FLUID CONTINUATION 900 ML IV ONE (10:51)
[2022-07-25] MEDS ORDERED: fentaNYL (PF) 50 MCG/ML 2 ML AMP IV ONE (10:51)
[2022-07-25] MEDS ORDERED: VERAPAMIL SYRINGE (5 MG/10 ML) INTRAARTER ONE (10:54)
[2022-07-25] MEDS ORDERED: HEPARIN SODIUM 1,000 UN/ML (10ML VL) IV ONE (10:54)
[2022-07-25] MEDS ORDERED: HEPARIN SODIUM 1,000 UN/ML (10ML VL) ONE (10:55)
[2022-07-25] MEDS ORDERED: IOPAMIDOL-370 125ML BTL INJ ONE (11:05)
--- NOTE | 2022-07-25 11:17 | P.CRDCN ---
History of Present Illness History of present illness: This is a 52 year old female with a past medical history of dyslipidemia, family history of coronary artery disease, brain tumor s/p surgery, left ICA aneurysm, white coat hypertension. 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 We are consulted for NSTEMI. Patient presents with chest discomfort. Started yesterday evening at work. Located in the midsternal, center chest. Non-radiating. Non- exertional. She had no associated shortness of breath, nausea, vomiting, diaphoresis, lightheadedness, dizziness, syncope or near syncope. She went to her PCP, EKG was performed and patient sent to the ER. She was given nitroglycerin with improvement and second nitro relieved her pain. She denies a [place] history of CAD, SD, Stroke, HTN, Diabetes, Seizures. She has 10 brother and sisters and some have had CAD, MIs, aneurysms. She is a non-smoker. DIAGNOSTICS * EKG reveals sinus rhythm, heart rate 75, T wave inversion in V2 * Telemetry tracings indicate sinus rhythm * Chest xray no acute cardiopulmonary process * Thoracic aorta CT reported 4 cm aneurysm of the ascending aorta. No arterial dissection. * 2018 stress echo test revealed no evidence of stress-induced ischemia * Laboratory reviewed, troponin 0.58, 3.7, 0.7. Sodium 137, potassium 3.6, BUN 6, serum crit 0.6, magnesium 1.9, CBC unremarkable * Current home cardiac medications include rosuvastatin 20 mg daily REVIEW OF SYSTEMS CONSTITUTIONAL: Denies fever or chills. CARDIOVASCULAR: + chest pain, Denies shortness of breath, orthopnea, PND or palpitations. RESPIRATORY: Denies cough. GASTROINTESTINAL: Denies abdominal pain, diarrhea, constipation, nausea or vomiting. MUSCULOSKELETAL: Denies myalgias. NEUROLOGIC: Denies numbness, tingling, headacbe or weakness. ENDOCRINE: Denies fatigue, weight change, polydipsia or polyurina. GENITOURINARY: Denies burning, hematuria or urgency with micturation. HEMATOLOGIC: Denies history of anemia or bleeding. PHYSICAL EXAMINATION Blood pressure 106/75, height 75, afebrile, oxygen saturation is 90% room air CONSTITUTIONAL: No apparent distress. HEENT: Head is normocephalic. Pupils are equal, round. Sclerae anicteric. Mucous membranes of the mouth are moist. No JVD. No carotid bruit. CHEST EXAMINATION: Lungs are clear to auscultation. No chest wall tenderness is noted on palpation or with deep breathing. HEART EXAMINATION: Regular rate and rhythm. S1, S2 heard. No murmurs, gallops or rub. ABDOMEN: Soft, nontender. Positive bowel sounds. EXTREMITIES: 2+ peripheral pulses, no lower extremity edema and no calf tenderness. NEUROLOGIC EXAMINATION: Patient is awake, alert and oriented x3. ASSESSMENT Chest pain and elevated troponin, rule out NSTEMI History of dyslipidemia Family history of coronary artery disease History of brain tumor status post surgery years ago per patient Left ICA aneurysm PLAN Obtain 2D echocardiogram and doppler study to assess cardiac structure and function. Reviewed at bedside by Dr. Case concerning for Tak[place]ubo. Continue IV Heparin Plan for cardiac catheterization with Dr. Brothers today to rule out ischemia Continue aspirin, statin, nitrate Further recommendations based on clinical course Nurse practitioner note has been reviewed by physician. Signing provider agrees with the documented findings, assessment, and plan of care. 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 History of Any Multi-Drug Resistant Organisms: None Reported Past Surgical History: Section Additional Past Surgical History / Comment(s): c section x 2 brain surgery to remove tumor Past Anesthesia/Blood Transfusion Reactions: No Reported Reaction Past Psychological History: Anxiety Smoking Status: Never smoker - Past Family History famly Additional Family Medical History / Comment(s): no CAD Medications and Allergies Home Medications Medication Instructions Recorded Confirmed Type Rosuvastatin [Crestor] 20 mg PO DAILY 05/22/20 07/25/22 History buPROPion XL [Wellbutrin XL] 150 mg PO DAILY 07/25/22 07/25/22 History Allergies Allergy/AdvReac Type Severity Reaction Status Date / Time No Known Allergies Allergy Verified 07/25/22 08:04 Physical Exam Vitals: Vital Signs Temp Pulse Resp BP Pulse Ox 07/25/22 03:28 69 15 122/77 98 07/25/22 00:11 88 15 118/69 99 07/24/22 19:03 98.2 F 69 18 169/112 100 Intake and Output 07/24/22 07/25/22 07/25/22 22:59 06:59 14:59 Other: Weight 63.503 kg Results 07/25/22 06:00 07/25/22 06:00 Cardiac Enzymes 07/24/22 07/24/22 07/25/22 Range/Units 19:38 19:38 00:24 AST 22 (14-36) U/L Troponin I 0.588 H* 3.710 H* (0.000-0.034) ng/mL 07/25/22 Range/Units 06:00 AST (14-36) U/L Troponin I 1.790 H* (0.000-0.034) ng/mL Coagulation 07/24/22 07/25/22 07/25/22 Range/Units 19:38 00:24 06:00 PT 10.8 11.9 (9.0-12.0) sec APTT 25.2 119.2 H* (22.0-30.0) sec CBC 07/24/22 07/25/22 07/25/22 Range/Units 19:38 00:24 06:00 WBC 7.4 11.4 H 6.2 (3.8-10.6) k/uL RBC 4.47 3.91 3.79 L (3.80-5.40) m/uL Hgb 13.7 12.5 12.0 (11.4-16.0) gm/dL Hct 40.5 36.3 35.5 (34.0-46.0) % Plt Count 200 167 169 (150-450) k/uL Comprehensive Metabolic Panel 07/24/22 Range/Units 19:38 Sodium 135 L (137-145) mmol/L Potassium 3.7 (3.5-5.1) mmol/L Chloride 99 (98-107) mmol/L Carbon Dioxide 26 (22-30) mmol/L BUN 6 L (7-17) mg/dL Creatinine 0.63 (0.52-1.04) mg/dL Glucose 87 (74-99) mg/dL Calcium 9.3 (8.4-10.2) mg/dL AST 22 (14-36) U/L ALT 17 (4-34) U/L Alkaline Phosphatase 59 (38-126) U/L Total Protein 6.6 (6.3-8.2) g/dL Albumin 4.3 (3.5-5.0) g/dL Current Medications Generic Name Dose Route Start Last Admin Trade Name Freq PRN Reason Stop Dose Admin Acetaminophen 650 mg 07/25/22 04:28 Acetaminophen Tab 325 Mg Tab PO Q4HR PRN Fever and/ or Pain Aspirin 325 mg 07/25/22 09:00 Aspirin 325 Mg Tab PO DAILY [facility] Atorvastatin Calcium 40 mg 07/25/22 09:00 Atorvastatin 40 Mg Tab PO DAILY [facility] Heparin Sodium (Porcine) 0 unit 07/24/22 23:28 Heparin Sodium 1,000 Un/Ml (10ml Vl) IV PER PROTOCOL PRN Low PTT Protocol Heparin Sodium/Sodium Chloride 250 mls @ 7.62 mls/hr 07/24/22 23:30 07/24/22 23:56 25,000 unit/ Sodium Chloride IV 12 units/kg/hr .Q24H NILAY 7.62 mls/hr Administration Protocol 12 UNITS/KG/HR Sodium Chloride 1,000 mls @ 75 mls/hr 07/25/22 04:30 Saline 0.9% IV .[id number] [facility] Naloxone HCl 0.2 mg 07/24/22 23:30 Naloxone 0.4 Mg/Ml 1 Ml Vial IV Q2M PRN Opioid Reversal Nitroglycerin 0.4 mg 07/24/22 21:18 07/24/22 23:55 Nitroglycerin Sl Tabs 0.4 Mg Tab SUBLINGUAL 0.4 mg Q5M PRN Administration Chest Pain Ondansetron HCl 4 mg 07/24/22 23:30 Ondansetron 4 Mg/2 Ml Vial IVP Q8HR PRN Nausea And Vomiting Pantoprazole Sodium 40 mg 07/25/22 07:30 Pantoprazole 40 Mg Tablet PO AC-BRKFST [facility] Intake and Output 07/24/22 07/25/22 07/25/22 22:59 06:59 14:59 Other: Weight 63.503 kg 07/25/22 06:00 07/24/22 19:38
--- NOTE | 2022-07-25 11:23 | P.CARDCATH ---
Description of Procedure: PROCEDURES PERFORMED: Left heart catheterization, bilateral coronary angiography INDICATION: Non-STEMI CONSENT:I have discussed the risks, benefits and alternative therapies for the above-mentioned procedure and for both sedation/analgesia as well as necessary blood product administration, if indicated, as they pertain to this patient. The patient has indicated understanding and acceptance of the risks and procedures discussed. PROCEDURE: After the risks, benefits and alternatives of the above mentioned procedure explained in detail with the patient, informed consent was obtained. Patient was taken to the catheterization lab and prepped and draped in usual fashion. 1% lidocaine was used to anesthetize the right radial artery. A 6- Cameroonian sheath was placed in the right radial artery using modified Seldinger technique. Left coronary angiography was performed with a 5-Cameroonian JL 3.5 catheter and right coronary angiography was performed with a 5-Cameroonian JR5 catheter in various views. A 5-Cameroonian FR5 catheter was inserted into the left ventricle and pressure measurements were obtained. The right radial sheath was removed and a TR band was placed with hemostasis achieved. The patient tolerated the procedure well. Patient was transported back to the post catheterization holding area in stable condition. Conscious Sedation: Patient was monitored under the direct supervision of vision of myself for conscious sedation using Versed and fentanyl for a total duration of 18 minutes HEMODYNAMICS: Aorta: 115/92 LV: 110/5, LVEDP 14 SELECTIVE CORONARY ARTERIOGRAPHY: LEFT MAIN: The left main is a large caliber vessel which bifurcates into the LAD and circumflex. There is no significant stenosis. LEFT ANTERIOR DESCENDING CORONARY ARTERY: LAD is a large caliber vessel which wraps around to the apex. There is no significant stenosis. LEFT CIRCUMFLEX CORONARY ARTERY: Left circumflex is a moderate caliber vessel without significant stenosis. RIGHT CORONARY ARTERY: The right coronary artery is a large caliber vessel which gives off a PDA and PLV branch and is the dominant vessel. There is no significant stenosis. FINAL IMPRESSION: 1. Normal coronary arteries as described above. 2. Normal left sided filling pressures PLAN: 1. Aggressive risk factor modification per most recent ACC/AHA guidelines. 2. Follow-up in the office in 1-2 weeks.
--- NOTE | 2022-07-25 17:25 | P.PN ---
Subjective Progress Note Date: 07/25/22 52 year old female with a past medical history of dyslipidemia, family history of coronary artery disease, history of brain tumor with surgery, left ICA aneurysm, 4 cm aneurysm of the ascending aorta presents to the ED for chest pain. Patient reports crushing chest pain, midsternal, radiating to the back. In the ED, her vital signs are stable. CBC was unremarkable. Coagulation panel negative. CMP showed sodium 135 and BUN of 6. Troponins trended from 0.588, 3.71, 1.79 with EKG showing T-wave inversion in V2. CT thoracic aorta showed a 4 cm aneurysm of the ascending aorta. Patient was started on a heparin drip and admitted for non-ST elevation NM. Cardiology evaluated the patient recommended cardiac catheterization. Patient was seen and examined prior to her cardiac catheterization. She denied any chest pain, shortness of breath or palpitations. General: non toxic, no distress, appears at stated age Derm: warm, dry Head: atraumatic, normocephalic, symmetric Eyes: EOMI, no lid lag, anicteric sclera Mouth: no lip lesion, mucus membranes moist Resp: good air exchange, breathing comfortably with no accessory muscle use CVS: good distal perfusion in all 4 extremities Ext: no gross muscle atrophy, no edema, no contractures Neuro: no focal neuro deficits Psych: Alert, oriented, appropriate affect #Non-ST elevation NM #Dyslipidemia #Ascending aortic aneurysm #History of brain tumor #Left ICA aneurysm Patient started on aspirin and Lipitor. She is continued on heparin drip. Continue telemetry monitoring. Plans for cardiac catheterization. Obtain echocardiogram. Cardiology on board. Patient will require dedicated aortic imaging in 6 months. She will need to see vascular surgery with regard to her ascending aortic aneurysm and left ICA aneurysm. Objective - Vital Signs Vital signs: Vital Signs Temp 98.2 F 07/24/22 19:03 Pulse 64 07/25/22 14:20 Resp 15 07/25/22 14:20 BP 91/64 07/25/22 14:20 Pulse Ox 98 07/25/22 14:20 FiO2 Intake & Output 07/24/22 07/25/22 07/25/22 18:59 06:59 18:59 Intake Total 350 Balance 350 Weight 63.503 kg 63.503 kg Intake: IV 350 Other: # Voids 1 - Labs CBC & Chem 7: 07/25/22 06:00 07/25/22 06:00 Labs: Abnormal Lab Results - Last 24 Hours (Table) 07/24/22 07/24/22 07/25/22 Range/Units 19:38 19:38 00:24 WBC 11.4 H (3.8-10.6) k/uL RBC (3.80-5.40) m/uL Neutrophils # 9.3 H (1.3-7.7) k/uL APTT (22.0-30.0) sec Sodium 135 L (137-145) mmol/L BUN 6 L (7-17) mg/dL Troponin I 0.588 H* (0.000-0.034) ng/mL 07/25/22 07/25/22 07/25/22 Range/Units 00:24 06:00 06:00 WBC (3.8-10.6) k/uL RBC (3.80-5.40) m/uL Neutrophils # (1.3-7.7) k/uL APTT 119.2 H* (22.0-30.0) sec Sodium (137-145) mmol/L BUN (7-17) mg/dL Troponin I 3.710 H* 1.790 H* (0.000-0.034) ng/mL 07/25/22 07/25/22 Range/Units 06:00 06:00 WBC (3.8-10.6) k/uL RBC 3.79 L (3.80-5.40) m/uL Neutrophils # (1.3-7.7) k/uL APTT (22.0-30.0) sec Sodium (137-145) mmol/L BUN 6 L (7-17) mg/dL Troponin I (0.000-0.034) ng/mL
[2022-07-25] MEDS: SODIUM CHLORIDE 0.9% 1,000 ML in EMPTY BAG 1 BAG IV SCH (17:36)
[2022-07-26] MEDS: HEPARIN SOD,PORK IN 0.45% NACL 25,000 UNIT in 0.45% NACL 1 250ML.BAG IV SCH (01:11)
[2022-07-26] MEDS: SODIUM CHLORIDE 0.9% 1,000 ML in EMPTY BAG 1 BAG IV SCH (02:28)
[2022-07-26] MEDS: SODIUM CHLORIDE 0.9% 1,000 ML IV SCH ×2 (04:45→06:34)
[2022-07-26] MEDS: PANTOPRAZOLE 40 MG TABLET PO SCH (06:35)
[2022-07-26] MEDS ORDERED: HEPARIN SODIUM,PORCINE 10,000 UNIT in SODIUM CHLORIDE 0.9% 1,000 ML IRRIGATION PRN (07:00)
[2022-07-26] MEDS ORDERED: HEPARIN SODIUM,PORCINE 2,500 UNIT in SODIUM CHLORIDE 0.9% 250 ML IRRIGATION PRN (07:00)
[2022-07-26] MEDS ORDERED: ATORVASTATIN 40 MG TAB PO SCH (09:00)
[2022-07-26 10:00] LABS: Basophils % (A) 1 %; Eosinophils # (A) 0.1 k/uL (0-0.7); Eosinophils % (A) 2 %; HCT 39.7 % (34.0-46.0); Lymphocytes # (A) 1.7 k/uL (1.0-4.8); Lymphocytes % (A) 35 %; MCH 30.4 pg (25.0-35.0); MCHC 32.7 g/dL (31.0-37.0); MCV 92.9 fL (80.0-100.0); Mean Platelet Volume 9.6; Monocytes # (A) 0.2 k/uL (0-1.0); Monocytes % (A) 5 %; Neutrophils # (A) 2.7 k/uL (1.3-7.7); Neutrophils % (A) 56 %; Platelet Count 181 k/uL (150-450); RBC 4.28 m/uL (3.80-5.40); RDW 13.5 % (11.5-15.5); WBC 4.8 k/uL (3.8-10.6)
[2022-07-26 10:02] LABS: African American GFR (CKD) >90 (>60 ml/min/1.73 sqM); Anion Gap 6 mmol/L; Blood Urea Nitrogen 7 mg/dL (7-17); Calcium 8.7 mg/dL (8.4-10.2); Carbon Dioxide 27 mmol/L (22-30); Chloride 105 mmol/L (98-107); Glucose 81 mg/dL (74-99); Non-African American GFR(CKD) >90 (>60 ml/min/1.73 sqM); Potassium 3.6 mmol/L (3.5-5.1); Sodium 138 mmol/L (137-145)
[2022-07-26] MEDS ORDERED: METOPROLOL SUCCINATE (ER) 25 MG TAB.ER.24H PO SCH (10:30)
[2022-07-26 10:59] VITALS: BP 112/79; PULSE 72; RESP 16; TEMP 97.7
--- NOTE | 2022-07-26 11:47 | P.PN ---
Subjective Progress Note Date: 07/26/22 The patient is a 52-year-old female who presented to the hospital with new onset of chest discomfort. Echocardiogram revealed severely reduced LV function and therefore she underwent coronary angiogram with Dr. Brothers. This showed normal coronary arteries, therefore her low EF with global hypokinesis is likely secondary to stress cardiomyopathy. The patient was interviewed and examined resting comfortably in bed this morning. She states she's had no symptoms since her angiogram yesterday. No chest pain or chest pressure. No dyspnea. No dizziness or lightheadedness when ambulating to the bathroom. GENERAL: Well-appearing, well-nourished and in no acute distress. NECK: Supple without JVD or thyromegaly. LUNGS: Breath sounds clear to auscultation bilaterally. Respiration equal and unlabored. No wheezes, rales or rhonchi. HEART: Regular rate and rhythm without murmurs, rubs or gallops. S1 and S2 heard. EXTREMITIES: Normal range of motion, no edema. No clubbing or cyanosis. Peripheral pulses intact and strong. Right radial site healed. +2 pulses. No hematoma. VITALS: Blood pressure 112/79, pulse 72, respiratory rate 16, temp 97.7F, SpO2 97% on room air TELEMETRY: Sinus rhythm overnight LABS: W BC 4.8, hemoglobin 13.0, hematocrit 39.7, platelet 181, sodium 138, potassium 3.6, BUN 7, creatinine 0.67 IMPRESSION: Takotsubo cardiomyopathy, EF less than 20% Elevated troponin Left ICA aneurysm Dilated ascending aorta 4.0 cm PLAN: Start low-dose beta albina for cardiomyopathy The patient does not develop any dizziness after administration, she may be discharged home Outpatient follow-up with Dr. Case in 1-2 weeks I am dictating on behalf of Dr Damian Case's history/physical and assessment/plan. Objective - Vital Signs Vital signs: Vital Signs Temp 97.7 F 07/26/22 10:40 Pulse 72 07/26/22 10:40 Resp 16 07/26/22 10:40 BP 112/79 07/26/22 10:40 Pulse Ox 97 07/26/22 10:40 FiO2 Intake & Output 07/25/22 07/26/22 07/26/22 18:59 06:59 18:59 Intake Total 350 118 Balance 350 118 Weight 63.503 kg 60.5 kg Intake: IV 350 Oral 118 Other: # Voids 1 1 2 - Labs CBC & Chem 7: 07/26/22 08:57 07/26/22 08:57
--- NOTE | 2022-07-26 13:37 | CA ---
Transthoracic Echo Report Name: Kirti Calzada Age: 52 Gender: F : 1970 Exam Date: 07/25/2022 09:21 Exam Location: [place] [facility] Ht (in): 64 Wt (lb): 140 Ordering Physician: El Jose MD Attending/Referring Phys: Reel Man Maddison Jensen RDCS Procedure CPT: Indications: nstemi Cardiac Hx: Technical Quality: Fair Contrast 1: Total Dose (mL): Contrast 2: Total Dose (mL): MEASUREMENTS (Male / Female) Normal Values 2D ECHO LV Diastolic Diameter PLAX 4.5 cm 4.2 - 5.9 / 3.9 - 5.3 cm LV Systolic Diameter PLAX 2.8 cm IVS Diastolic Thickness 1.2 cm 0.6 - 1.0 / 0.6 - 0.9 cm LVPW Diastolic Thickness 1.1 cm 0.6 - 1.0 / 0.6 - 0.9 cm LV Relative Wall Thickness 0.5 RV Internal Dim ED PLAX 2.3 cm LA Volume 33.3 cm??? 18 - 58 / 22 - 52 cm??? M-MODE Aortic Root Diameter MM 3.1 cm LA Systolic Diameter MM 1.8 cm LA Ao Ratio MM 0.6 AV Cusp Separation MM 1.9 cm DOPPLER AV Peak Velocity 99.5 cm/s AV Peak Gradient 4.0 mmHg LVOT Peak Velocity 98.5 cm/s LVOT Peak Gradient 3.9 mmHg MV Area PHT 3.1 cm??? Mitral E Point Velocity 46.5 cm/s Mitral A Point Velocity 56.8 cm/s Mitral E to A Ratio 0.8 MV Deceleration Time 240.8 ms MV E' Velocity 4.8 cm/s Mitral E to MV E' Ratio 9.7 TR Peak Velocity 175.8 cm/s TR Peak Gradient 12.4 mmHg Right Ventricular Systolic Press 17.4 mmHg FINDINGS Left Ventricle Mildly increased left ventricular wall thickness. Hypokinetic mid anterior wall. Hypokinetic mid inferior wall. Hypokinetic septum. Left ventricular ejection fraction is estimated at 35-40 %. Right Ventricle Normal right ventricular size and function. Right ventricular systolic pressure within normal limits. Right Atrium Normal right atrial size. Left Atrium Normal left atrial size. Mitral Valve Structurally normal mitral valve. Mild mitral regurgitation. Aortic Valve No aortic valve stenosis or regurgitation. Tricuspid Valve Mild tricuspid regurgitation. Pulmonic Valve Trace pulmonic regurgitation. Pericardium No pericardial effusion. Aorta Normal size aortic root and proximal ascending aorta. CONCLUSIONS Left ventricular ejection fraction 35-40% with predominantly apical hypokinesis with preservation of basal segments consistent with Takotsubo's cardiomyopathy vs multievseel CAD. Clinical correlation recommended. Mild mitral regurgitation Mild tricuspid regurgitation Normal RVSP 70 Previewed by: Dr. John Brothers DO (Electronically Signed) Final Date: 25 July 2022 11:26
--- NOTE | 2022-07-26 15:25 | P.DS ---
Providers Date of admission: 07/24/22 23:30 Expected date of discharge: 07/26/22 Attending physician: Chai Cohen MD Consults: 07/24/22 23:30 Consult Physician Routine Consulting Provider: [facility] Consult Reason/Comments: nstemi, chest pain Do you want consulting provider notified?: Yes, Notify in am Primary care physician: [facility] Course: 52 year old female with a past medical history of dyslipidemia, family history of coronary artery disease, history of brain tumor with surgery, left ICA aneurysm, 4 cm aneurysm of the ascending aorta presents to the ED for chest pain. Patient reports crushing chest pain, midsternal, radiating to the back. In the ED, her vital signs are stable. CBC was unremarkable. Coagulation panel negative. CMP showed sodium 135 and BUN of 6. Troponins trended from 0.588, 3.71, 1.79 with EKG showing T-wave inversion in V2. CT thoracic aorta showed a 4 cm aneurysm of the ascending aorta. Patient was started on a heparin drip and admitted for non-ST elevation PR. Cardiology evaluated the patient recommended cardiac catheterization. Cardiac cath was negative. Heparin drip was discontinued. Echocardiogram showed cardiomyopathy with EF less than 10%. Patient was cleared for discharge from cardiology perspective on low-dose metoprolol with follow-up with cardiology within 1 week of discharge. Patient was advised she will require dedicated aortic imaging in 6 months. She will need to see vascular surgery with regard to her ascending aortic aneurysm and left ICA aneurysm. Patient was seen and examined this morning. No acute events overnight. Patient reported no complaints. Pertinent studies include Echocardiogram and cardiac catheterization. General: non toxic, no distress, appears at stated age Derm: warm, dry Head: atraumatic, normocephalic, symmetric Eyes: EOMI, no lid lag, anicteric sclera Mouth: no lip lesion, mucus membranes moist Resp: good air exchange, breathing comfortably with no accessory muscle use CVS: good distal perfusion in all 4 extremities Ext: no gross muscle atrophy, no edema, no contractures Neuro: no focal neuro deficits Psych: Alert, oriented, appropriate affect Discharge diagnosis: #Cardiomyopathy with EF less than 20% #Elevated troponin #Dyslipidemia #Ascending aortic aneurysm #History of brain tumor #Left ICA aneurysm This complex discharge took about 35 minutes to complete. Patient Condition at Discharge: Stable Plan - Discharge Summary Discharge Rx Participant: No New Discharge Prescriptions: New Metoprolol Succinate (ER) [Toprol XL] 12.5 mg PO DAILY #30 tab Continue Rosuvastatin [Crestor] 20 mg PO DAILY buPROPion XL [Wellbutrin XL] 150 mg PO DAILY Discharge Medication List Rosuvastatin [Crestor] 20 mg PO DAILY 05/22/20 [History] buPROPion XL [Wellbutrin XL] 150 mg PO DAILY 07/25/22 [History] Metoprolol Succinate (ER) [Toprol XL] 12.5 mg PO DAILY #30 tab 07/26/22 [Rx] Follow up Appointment(s)/Referral(s): Damian Case MD [STAFF PHYSICIAN] - 1 Week (Office to call with appointment date and time.) Alexander Ballesteros MD [Primary Care Provider] - 1-2 days (PLEASE CALL TO SCHEDULE APPOINTMENT. ) Patient Instructions/Handouts: *Surgery [facility] - After Heart Catheterization - Reheater Helper Instructions, Metoprolol (By mouth), Dilated Cardiomyopathy (DC), Nonruptured Abdominal Aortic Aneurysm (DC) Activity/Diet/Wound Care/Special Instructions: Diet: Regular FU PCP within 1-2 days of DC. FU with Cardiology within 1 week of DC. Take all medications as advised. You will require dedicated aortic imaging in 6 months. You will need to see vascular surgery with regard to the ascending aortic aneurysm and left ICA aneurysm. Please obtain referral from your PCP. Discharge Disposition: HOME SELF-CARE
[2022-07-26 16:25] LABS: Chol/HDL Ratio 2.25 Ratio; LDL Cholesterol,Calculated 54.1 mg/dL (0.0-131.0)
== END 2022-07-26 13:37 | disposition home or self-care (01) | DRG 287 ==
LOC: EC 19:03 → 3SCARD 23:30
PROVIDERS: ADMIT Internal Medicine; ATTEND Internal Medicine
PROC: 4A023N7 Measurement of Cardiac Sampling and Pressure, Left Heart, Percutaneous Approach (ICD-10-PCS; principal; 2022-07-24)
PROC: B2111ZZ Fluoroscopy of Multiple Coronary Arteries using Low Osmolar Contrast (ICD-10-PCS; principal; 2022-07-24)
DX: I51.81 Takotsubo syndrome (principal); I72.0 Aneurysm of carotid artery; I71.21 Aneurysm of the ascending aorta, without rupture; Z28.310 Unvaccinated for COVID-19; E78.5 Hyperlipidemia, unspecified; F41.9 Anxiety disorder, unspecified; R77.8 Other specified abnormalities of plasma proteins; Z79.899 Other long term (current) drug therapy; Z82.49 Family history of ischemic heart disease and other diseases of the circulatory system
CPT/HCPCS: 36415; 71046; 71275; 74174; 80048; 80053; 80061; 83735; 84484; 85025; 85610; 85730; 93005; 93306; 93458; 96365; 96366; 96375; 99291

== ENCOUNTER → 2022-09-21 | Outpatient (CLI) | payer OTHER ==
--- NOTE | 2022-09-22 08:21 | MM ---
Reason for Exam: Screening (asymptomatic). Last screening mammogram was performed 12 month(s) ago. Patient History: Menarche at age 11. First Full-Term at age 28. Late child-bearing (after 28). Postmenopausal. Hormonal Contraceptives for 11 years from age 16 until age 27. Bilateral Reduction. Maternal aunt had breast cancer, age 40. Risk Values: Hannah 5 year model risk: 1.6%. NCI Lifetime model risk: 11.4%. Prior Study Comparison: 12/29/2014 Right Diagnostic Mammogram, [facility]. 08/12/2015 Bilateral Diagnostic Mammogram, [facility]. 04/03/2018 Bilateral Screening Mammogram, [facility]. 09/08/2020 Bilateral Screening Mammogram, [facility]. 09/20/2021 Bilateral Screening Mammogram, [facility]. Tissue Density: The breast tissue is heterogeneously dense. This may lower the sensitivity of mammography. Findings: Analyzed By CAD. There is no suspicious group of microcalcifications or new suspicious mass in either breast. Overall Assessment: Negative, BI-RAD 1 Management: Screening Mammogram of both breasts in 1 year. A clinical breast exam by your physician is recommended on an annual basis and results should be correlated with mammographic findings. Electronically signed and approved by: José Brower M.D.
== END | disposition home or self-care (01) ==
LOC: RADMAMWWP 07:07
PROVIDERS: ATTEND Family Medicine
DX: Z12.31 Encounter for screening mammogram for malignant neoplasm of breast (principal); Z80.3 Family history of malignant neoplasm of breast; Z78.0 Asymptomatic menopausal state
CPT/HCPCS: 77063; 77067

== ENCOUNTER → 2023-08-03 | Outpatient (CLI) | payer BC, OTHER ==
--- NOTE | 2023-08-07 09:44 | CT ---
EXAMINATION TYPE: CT angio abdomen pelvis DATE OF EXAM: 08/03/2023 COMPARISON: 07/24/2020 HISTORY: AAA follow up. CT DLP: 576.5 mGycm CONTRAST: CTA thoracic and abdominal aorta with 3-D reconstruction is performed without Oral Contrast and with IV Contrast, patient injected with 100 ml mL of Isovue 300. Contrast CTA of the abdominal aorta was performed from the lung bases through the base of the pelvis. 3-D reconstruction imaging obtained at a separate workstation. CONTRAST CT ABDOMEN AND PELVIS ABDOMINAL AORTA: No evidence for abdominal aortic aneurysm. No dissection. Iliac vessels are symmet solis and patent. LIVER/GB- No significant abnormality is seen. PANCREAS- No significant abnormality is seen. SPLEEN- No significant abnormality is seen. ADRENALS- No significant abnormality is seen. KIDNEYS/BLADDER- No significant abnormality is seen. BOWEL- No Significant abnormality GENITAL ORGANS: No gross abnormality seen. LYMPH NODES- No greater than 1cm abdominal or pelvic lymph nodes are appreciated. OSSEOUS STRUCTURES- No significant abnormality is seen. OTHER- No significant abnormality is seen. IMPRESSION- No evidence for abdominal aortic aneurysm.
== END | disposition home or self-care (01) ==
LOC: RADCTMAIN 14:56
PROVIDERS: ATTEND Family Medicine
DX: I67.1 Cerebral aneurysm, nonruptured (principal); I71.40 Abdominal aortic aneurysm, without rupture, unspecified
CPT/HCPCS: 74174; Q9967

== ENCOUNTER → 2023-08-17 | Outpatient (CLI) | payer BC ==
--- NOTE | 2023-08-17 11:48 | MR ---
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 COMPARISON: 06/10/2021 Technical: MRA brain: 2D and 3-D [id number] Axial with MIP and 3-D reconstruction. Performed on a separate w orkstation. MRA neck: Multiplanar, multi-sequence imaging as well as [id number] and phase was performed extra cranial vasculature of the neck. 3-D reformatted images and maximum intensity projection reformatted images were submitted for evaluation, these are performed on a separate workstation. IV Contrast: 6.5 cc Gadavist Findings: Vertebral arteries: The vertebral arteries are patent. Vertebral arteries are: Codominant. Basilar artery: The basilar artery is intact. The basilar artery bifurcation is normal. Internal Carotid arteries: Similar left carotid siphon 4 x 3 mm saccular aneurysm when comparing to prior. The cervical, petrous, cavernous and supraclinoid segments are normal. OUMOU: Patent with no evidence of aneurysm. ACOM: Present without evidence of aneurysm. MCA: Patent with no evidence of aneurysm. SAWYER CORK SLABS: Patent with no evidence of aneurysm. PCOM: Hypoplastic bilaterally. RIGHT CAROTID SYSTEM: The common carotid artery is patent. The carotid bifurcations demonstrates no e vidence for hemodynamically significant stenosis. The internal carotid artery is patent. LEFT CAROTID SYSTEM: The common carotid artery is patent. The carotid bifurcations demonstrates no e vidence for hemodynamically significant stenosis. The internal carotid artery is patent. The origins of the great vessels and vertebral arteries appear unremarkable. The right vertebral art jovita is dominant. IMPRESSION: 1. Similar left carotid siphon 4 x 3 mm saccular aneurysm when comparing to prior 2. No evidence of intracranial significant stenosis. 3. No evidence of significant stenosis at the carotid bifurcations. The carotid and vertebral arteri es are patent.
== END | disposition home or self-care (01) ==
LOC: RADMRIMAIN 06:07
PROVIDERS: ATTEND Family Medicine
DX: I67.1 Cerebral aneurysm, nonruptured (principal); I71.40 Abdominal aortic aneurysm, without rupture, unspecified
CPT/HCPCS: 70544; 70549; A9585

== ENCOUNTER → 2023-09-11 | Outpatient (CLI) | payer BC ==
--- NOTE | 2023-09-12 08:42 | CT ---
EXAMINATION TYPE: CT angio chest DATE OF EXAM: 09/11/2023 COMPARISON: 08/03/2023 HISTORY: Asc. aortic aneurysm x [address] DLP: 370.9 mGycm CONTRAST: CTA thoracic aorta with 3-D reconstruction is performed and without and with IV Contrast, patient inj ected with 100 cc mL of Isovue 300. Contrast CTA of the thoracic aorta was performed from the lung apex through the upper abdomen. 3D re construction imaging obtained at a separate workstation. CT Chest: THORACIC AORTA: Borderline ascending thoracic aortic aneurysm at 4 cm. Aortic arch is of normal calib er as is the descending thoracic aorta. Mild atheromatous changes seen. There is no evidence for dis section or periaortic collection. LUNGS: The lungs are clear and free of infiltrate or atelectasis. No pulmonary nodule or mass is det ected. No pleural effusion or CT evidence of interstitial lung disease. MEDIASTINUM: No evidence for mediastinal hematoma. The heart is not enlarged. No evidence for med iastinal mass or adenopathy. HILAR STRUCTURES: No evidence for mass. No hilar adenopathy is appreciated. OTHER: No significant abnormality. IMPRESSION- Borderline ascending thoracic aortic aneurysm at 4 cm. Aortic arch is of normal caliber as is the gladys cending thoracic aorta.
== END | disposition home or self-care (01) ==
LOC: RADCTMAIN 14:58
PROVIDERS: ATTEND Family Medicine
DX: I71.21 Aneurysm of the ascending aorta, without rupture (principal)
CPT/HCPCS: 71275; Q9967